=== PATIENT | male | born 1995 | race Caucasian/White ===

== ENCOUNTER 2018-02-09 05:26 | Emergency (ER) | payer BC ==
[~2018-02-09] VITALS: Ht 180.3 cm; Wt 90.0 kg
[2018-02-09 07:12] LABS: BASOPHILS % 0.4 % (0.0-2.0); CHLORIDE 106 mEq/L (98-107); EOSINOPHILS % 0.6 % (0.0-5.0); HEMOGLOBIN. 14.9 g/dL (14.0-18.0); LYMPHOCYTES % 20.2 % (20.0-50.0); MEAN CORPUSCULAR VOLUME 88.5 fL (80.0-94.0); MONOCYTES % 7.3 % (2.0-8.0); NEUTROPHILS % 71.5 % (40.0-76.0); PLATELET 261 x1000/uL (130-400); RED BLOOD CELL COUNT 4.97 mill/uL (4.7-6.1); RED CELL DISTRIBUTION WIDTH 12.4 % (11.6-14.6)
[2018-02-09 07:34] VITALS: BP 124/68
[2018-02-09] MEDS ORDERED: TETANUS, DIPHTHERIA, PERTUSSIS VAC/PF 0.5ML (>7YR OLD) IM ONE (07:45)
== END 2018-02-09 08:02 | disposition home or self-care (01) ==
LOC: ER 05:50
DX: R55 Syncope and collapse (principal)
CPT/HCPCS: 36415; 80053; 85025; 90471; 90715; 93005; 99285; Z7610

== ENCOUNTER 2019-11-12 07:12 | Emergency (ER) | payer SELFPAY ==
[~2019-11-12] VITALS: Ht 180.3 cm; Wt 100.0 kg
[2019-11-12 08:19] LABS: CLARITY URINE CLEAR (CLEAR); COLOR URINE YELLOW (YELLOW); KETONES URINE NEGATIVE (NEGATIVE); LEUKOCYTE ESTERASE URINE NEGATIVE (NEGATIVE); NITRITE URINE NEGATIVE (NEGATIVE); OCCULT BLOOD URINE NEGATIVE (NEGATIVE); PH URINE 5.5 (4.5-8.0); PROTEIN URINE NEGATIVE (NEGATIVE); SPECIFIC GRAVITY URINE 1.029 (1.005-1.030); UROBILINOGEN URINE 0.2 E.U./dL (0.2-1.0)
[2019-11-12 08:53] VITALS: BP 138/74
[2019-11-14 07:10] LABS: NEISSERIA GONORRHOEAE NAA Negative (Negative)
== END 2019-11-12 08:54 | disposition home or self-care (01) ==
LOC: ER 07:12
DX: R55 Syncope and collapse (principal)
CPT/HCPCS: 81003; 86703; 87491; 87591; 99283

== ENCOUNTER 2020-09-19 18:25 | Emergency (ER) | payer MEDICAID ==
[~2020-09-19] VITALS: Ht 180.3 cm; Wt 107.0 kg
[2020-09-19] MEDS ORDERED: IBUPROFEN 600MG TABLET PO ONE (19:30)
[2020-09-19 19:48] LABS: BASOPHILS % 0.5 % (0.0-2.0); EOSINOPHILS % 0.4 % (0.0-5.0); HEMATOCRIT. 46.5 % (42.0-52.0); HEMOGLOBIN. 15.6 g/dL (14.0-18.0); LYMPHOCYTES % 23.7 % (20.0-50.0); MEAN CORPUSCULAR HEMOGLOBIN 29.3 pg (28.0-32.0); MEAN CORPUSCULAR VOLUME 87.5 fL (80.0-94.0); MONOCYTES % 8.4 % (2.0-8.0); PLATELET 291 x1000/uL (130-400); RED BLOOD CELL COUNT 5.32 mill/uL (4.7-6.1); RED CELL DISTRIBUTION WIDTH 12.7 % (11.6-14.6)
[2020-09-19 19:52] LABS: CHLORIDE 104 mEq/L (98-107)
[2020-09-19] MEDS ORDERED: IBUP-2029 MT (20:43)
[2020-09-19] MEDS ORDERED: BACL-141 MT (20:43)
[2020-09-19 21:04] VITALS: BP 128/71
== END 2020-09-19 21:08 | disposition home or self-care (01) ==
LOC: ER 18:25
DX: R07.9 Chest pain, unspecified (principal)
CPT/HCPCS: 36415; 71045; 80053; 84484; 85025; 85379; 93005; 99284